=== PATIENT | male | born 1995 | race Two or more races ===

== ENCOUNTER 2016-11-24 15:52 | Emergency (ER) | payer SELFPAY ==
[~2016-11-24] VITALS: Ht 165.1 cm; Wt 70.3 kg
[2016-11-24 17:19] VITALS: BP 138/60
== END 2016-11-24 17:41 | disposition home or self-care (01) ==
LOC: ER 15:54
DX: M53.3 Sacrococcygeal disorders, not elsewhere classified (principal); M54.9 Dorsalgia, unspecified
CPT/HCPCS: 81002